=== PATIENT | male | born 1965 | race Caucasian/White ===

== ENCOUNTER 2017-03-28 16:53 | Inpatient (IN) | payer BC ==
[~2017-03-28] VITALS: Ht 152.4 cm; Wt 68.0 kg
[~2017-03-28 16:53] MED LIST: MOBIC15 MG PO; NORCO 5/3251 TABLET PO; PRILOSEC40 MG PO; SKELAXIN800 MG PO
[2017-03-28 17:31] LABS: BASOPHIL COUNT 0.1 K/uL (0-0.1); EOSINOPHIL (%) 0.7 % (0-5); EOSINOPHIL COUNT 0.1 K/uL (0-0.3); HEMATOCRIT 36.3 % (38.0-50.0); IMMATURE GRANULOCYTE (%) 2.2 % (0.0-0.7); IMMATURE GRANULOCYTE COUNT 0.3 K/uL; INSTRUMENT ABS NEUTROPHIL CT 9.9 K/uL; LYMPHOCYTE COUNT 1.4 K/uL (1.0-2.8); MCH 31.9 PG (29.0-34.0); MCHC 34.2 G/DL (30.0-36.0); MCV 93.3 FL (86-99); MEAN PLAT.VOLUME 9.1 uM^3 (9.0-12.4); MONOCYTE (%) 8.4 % (3-12); MONOCYTE COUNT 1.1 K/uL (0-0.8); NEUTROPHIL (%) 77.7 % (45-76); NEUTROPHIL COUNT 9.9 K/uL (1.8-6.4); PLATELET COUNT 305 K/uL (156-360); RBC DIS.WIDTH-CV 12.9 % (11.8-14.6); RBC DIS.WIDTH-SD 43.8 % (39-53); RED BLOOD COUNT 3.89 M/uL (4.00-5.50); WHITE BLOOD COUNT 12.7 K/uL (4.1-10.2)
[2017-03-28] MEDS ORDERED: ZESTRIL10 MG PO (17:36)
[2017-03-28] MEDS ORDERED: LO-DOSE ASPIRIN81 M1 PO (17:37)
[2017-03-28] MEDS ORDERED: VITAMIN D31000 UNIT PO (17:38)
[2017-03-28] MEDS ORDERED: PRAVASTATIN SOD20 MG PO (17:39)
[2017-03-28] MEDS ORDERED: TUMS500 MG PO (17:39)
[2017-03-28] MEDS ORDERED: ALEVE220 MG PO (17:40)
[2017-03-28 17:41] LABS: ANION GAP 11 MEQ/L (2-14); CHLORIDE 93 MEQ/L (99-109); POTASSIUM 3.8 MEQ/L (3.7-5.4); SAMPLE HEMOLYSIS CHECK 0; SAMPLE ICTERIC CHECK 0; SAMPLE LIPEMIA CHECK 0; SODIUM 130 MEQ/L (136-147)
[2017-03-28 17:46] VITALS: BP 121/74
[2017-03-28 17:47] LABS: GFR ESTIMATE (CALCULATED) > 59 mL/min/; GLUCOSE 111 mg/dL (70-99); UREA NITROGEN (BUN) 15 mg/dL (9-23)
[2017-03-28 23:50] VITALS: BP 138/85
[2017-03-29 03:35] VITALS: BP 124/76
[2017-03-29 08:00] VITALS: BP 133/70
[2017-03-29 08:00] LABS: EOSINOPHIL (%) 0 % (0-5); HEMATOCRIT 30.9 % (38.0-50.0); IMMATURE GRANULOCYTE COUNT 0.3 K/uL; LYMPHOCYTE COUNT 0.6 K/uL (1.0-2.8); MCH 32.9 PG (29.0-34.0); MCHC 34.3 G/DL (30.0-36.0); MEAN PLAT.VOLUME 9.3 uM^3 (9.0-12.4); MONOCYTE (%) 3.1 % (3-12); MONOCYTE COUNT 0.4 K/uL (0-0.8); PLATELET COUNT 276 K/uL (156-360); RBC DIS.WIDTH-CV 13.2 % (11.8-14.6); RBC DIS.WIDTH-SD 46.2 % (39-53); RED BLOOD COUNT 3.22 M/uL (4.00-5.50); WHITE BLOOD COUNT 13.3 K/uL (4.1-10.2)
[2017-03-29 08:31] LABS: ANION GAP 10 MEQ/L (2-14); CHLORIDE 98 MEQ/L (99-109); GFR ESTIMATE (CALCULATED) > 59 mL/min/; SAMPLE HEMOLYSIS CHECK 0; SAMPLE ICTERIC CHECK 0; SAMPLE LIPEMIA CHECK 0; SODIUM 132 MEQ/L (136-147); UREA NITROGEN (BUN) 12 mg/dL (9-23)
[2017-03-29 08:32] LABS: GLUCOSE 202 mg/dL (70-99)
[2017-03-29 12:58] VITALS: BP 126/81
[2017-03-29 16:19] VITALS: BP 116/70
[2017-03-29 19:44] VITALS: BP 130/64
[2017-03-29 23:38] VITALS: BP 132/78
[2017-03-30 06:55] LABS: EOSINOPHIL (%) 1.3 % (0-5); EOSINOPHIL COUNT 0.1 K/uL (0-0.3); HEMATOCRIT 32.8 % (38.0-50.0); IMMATURE GRANULOCYTE (%) 1.6 % (0.0-0.7); IMMATURE GRANULOCYTE COUNT 0.2 K/uL; INSTRUMENT ABS NEUTROPHIL CT 7.2 K/uL; LYMPHOCYTE COUNT 2.4 K/uL (1.0-2.8); MCH 31.6 PG (29.0-34.0); MCHC 32.6 G/DL (30.0-36.0); MCV 96.8 FL (86-99); MEAN PLAT.VOLUME 9.2 uM^3 (9.0-12.4); MONOCYTE COUNT 0.6 K/uL (0-0.8); NEUTROPHIL (%) 68.3 % (45-76); NEUTROPHIL COUNT 7.2 K/uL (1.8-6.4); PLATELET COUNT 311 K/uL (156-360); RBC DIS.WIDTH-CV 13.3 % (11.8-14.6); RBC DIS.WIDTH-SD 47.5 % (39-53); RED BLOOD COUNT 3.39 M/uL (4.00-5.50); WHITE BLOOD COUNT 10.5 K/uL (4.1-10.2)
[2017-03-30 07:23] LABS: ANION GAP 6 MEQ/L (2-14); CHLORIDE 97 MEQ/L (99-109); GFR ESTIMATE (CALCULATED) > 59 mL/min/; POTASSIUM 4.2 MEQ/L (3.7-5.4); SAMPLE HEMOLYSIS CHECK 0; SAMPLE ICTERIC CHECK 0; SAMPLE LIPEMIA CHECK 0; SODIUM 131 MEQ/L (136-147); UREA NITROGEN (BUN) 10 mg/dL (9-23)
[2017-03-30 07:25] LABS: GLUCOSE 94 mg/dL (70-99)
[2017-03-30 07:43] VITALS: BP 147/89
[2017-03-30 16:27] VITALS: BP 130/75
[2017-03-30 23:57] VITALS: BP 116/74
[2017-03-31 07:27] VITALS: BP 120/68
[2017-03-31 16:13] VITALS: BP 110/71
[2017-03-31 23:18] VITALS: BP 131/77
[2017-04-01 08:23] VITALS: BP 140/80
[2017-04-01] MEDS ORDERED: LOVENOX40 MG/0.4 SC (09:07)
[2017-04-01] MEDS ORDERED: HYDROCODON-ACE1 EAC7 PO (09:07)
[2017-04-01] MEDS ORDERED: DICLOXACILLIN500 MG PO (09:34)
== END 2017-04-01 12:45 | disposition home or self-care (01) | DRG 502 ==
LOC: SDC 16:53 → 2SOUTH 22:48 → 3EAST 22:48
PROVIDERS: Orthopaedic Surgery
DX: M70.42 Prepatellar bursitis, left knee (principal); B95.8 Unspecified staphylococcus as the cause of diseases classified elsewhere; M85.80 Other specified disorders of bone density and structure, unspecified site; I10 Essential (primary) hypertension; E78.00 Pure hypercholesterolemia, unspecified; Z79.82 Long term (current) use of aspirin; Z87.891 Personal history of nicotine dependence
CPT/HCPCS: 80048; 80202; 85025; 87070; 87075; 87077; 87147; 87186; 87205; 93005; J0690; J1100; J1170; J1650; J2250; J2270; J2405; J2543; J3010; J3370; J7050